=== PATIENT | female | born 1965 | race Caucasian/White ===

== ENCOUNTER 2019-11-25 12:51 | Emergency (ER) | payer MEDICAID ==
[~2019-11-25] VITALS: Ht 165.1 cm; Wt 81.8 kg
[2019-11-25] MEDS ORDERED: BICT1TAB PO (12:56)
[2019-11-25 15:19] VITALS: BP 139/92
== END 2019-11-25 15:34 | disposition home or self-care (01) ==
LOC: EMS 12:54
DX: S93.402A Sprain of unspecified ligament of left ankle, initial encounter (principal); F17.210 Nicotine dependence, cigarettes, uncomplicated; W19.XXXA Unspecified fall, initial encounter; Y93.89 Activity, other specified; Y92.89 Other specified places as the place of occurrence of the external cause; Y99.8 Other external cause status